=== PATIENT | female | born 1970 | race Caucasian/White ===

== ENCOUNTER 2018-04-29 08:16 | Day surgery (SDC) | payer MEDICAID ==
[2018-04-18 13:58] VITALS: BMI 28.1
[~2018-04-29 08:16] MED LIST: Carbachol 0.01% IO ONE; Chondroitin/Hyaluronate Opth Syringe KIT (0.55 ml-0.5 ml) IO ONE; Ciprofloxacin 0.3% OPTH SOLN OD SCH; Cyclopentolate 1% Opth (2 ml) OD SCH; Flurbiprofen 0.03% Opht SOLN OD SCH; Hyaluronidase Human, Recombi 150 U/ML VIAL ONE; Lactated Ringer's 500 ML IV ONE; Lidocaine 2% MPF (5 ml) Inj ONE; Phenylephrine 2.5% Opht Soln OD SCH; Povidone Iodine Ophthalmic 5% Soln ONE; Tetracaine 0.5% Ophth (OR ONLY) ONE; Tobramycin/Dexamethasone (Tobradex) Opth Sol (2.5 ml) ONE; Tobramycin/Dexamethasone OPHT OINT ONE; Tropicamide 1% Opht SOLUTION OD SCH
[2018-04-29 08:53] VITALS: RESP 18
[2018-04-29] MEDS ORDERED: acetaZOLAMIDE 500 mg SR Cap PO ONE (11:34)
[2018-04-29] MEDS ORDERED: Propofol 10 mg/ml Inj (20 ML) ONE (11:38)
[2018-04-29 12:29] VITALS: TEMP 97.2; O2SAT 100
[2018-04-29 12:42] VITALS: PULSE 75
[2018-04-29 12:50] VITALS: BP 120/77
--- NOTE | 2018-04-30 07:33 | OP ---
PROCEDURE DATE: 04/29/2018 PREOPERATIVE DIAGNOSIS: CATARACT RIGHT EYE. POSTOPERATIVE DIAGNOSIS: CATARACT RIGHT EYE. OPERATIVE PROCEDURE: CATARACT EXTRACTION WITH IMPLANT RIGHT EYE. ANESTHESIA TYPE: Local, standby. ANESTHESIOLOGIST: COMPLICATIONS: None. PROCEDURE: Local anesthesia was achieved using a mixture of 1% lidocaine and Amphadase. The patient was then prepped and draped in the usual sterile fashion for ophthalmic surgery. Betadine drops were placed into the eye. A lid speculum was used and a sideport incision was made using a 15 degree blade. Viscoelastic was used to fill the anterior chamber and a 2.7 millimeter slit blade was used to create a surgical opening. Additional viscoelastic was placed into the eye and a capsulorrhexis was performed. Hydrodissection and delineation were then carried out. Phacoemulsification of the nucleus was performed with ease and cortical cleanup was achieved without difficulty. The capsular bag was refilled using viscoelastic and a posterior chamber lens was inserted through the existing wound and placed into the capsular bag and easily centered. All viscoelastic was then aspirated from the eye and Miochol was instilled for good symmetric pupillary constriction. The sideport wound was hydrated as necessary and a good watertight closure was observed at the conclusion of the case. A TobraDex soaked collagen shield was then placed over the eye. The lid speculum was removed. TobraDex ointment was placed onto the eye and a patch and shield were placed. The patient tolerated the procedure well. Juan Alberto Valverde MD
== END 2018-04-29 12:51 | disposition home or self-care (01) ==
LOC: C.SDS 08:16
PROVIDERS: ATTEND Ophthalmology
DX: H25.11 Age-related nuclear cataract, right eye (principal)
CPT/HCPCS: 66984; J2704; J3470; J7120

== ENCOUNTER 2018-12-23 09:04 | Day surgery (SDC) | payer MEDICAID ==
[2018-12-05 08:46] VITALS: BMI 28.6
[~2018-12-23 09:04] MED LIST changes: -Ciprofloxacin 0.3% OPTH SOLN OD SCH; +Ciprofloxacin 0.3% OPTH SOLN OS SCH; -Cyclopentolate 1% Opth (2 ml) OD SCH; +Cyclopentolate 1% Opth (2 ml) OS SCH; -Flurbiprofen 0.03% Opht SOLN OD SCH; +Ketorolac Tromethamine 0.5% Opth Soln (3 ml) OS SCH; -Lidocaine 2% MPF (5 ml) Inj ONE; -Phenylephrine 2.5% Opht Soln OD SCH; +Phenylephrine 2.5% Opht Soln OS SCH; -Tetracaine 0.5% Ophth (OR ONLY) ONE; +Tropicamide 0.5% Opht Sol OS SCH; -Tropicamide 1% Opht SOLUTION OD SCH
[2018-12-23] MEDS ORDERED: Tropicamide 1% Opht SOLUTION OS STA (09:29)
[2018-12-23] MEDS ORDERED: Lidocaine 2% MPF (5 ml) Inj ONE (10:03)
[2018-12-23] MEDS ORDERED: Lactated Ringer's 500 ML IV ONE (10:21)
[2018-12-23] MEDS ORDERED: Propofol 10 mg/ml Inj (20 ML) ONE (12:47)
[2018-12-23 13:28] VITALS: O2SAT 100
[2018-12-23 14:12] VITALS: BP 120/65; PULSE 73; RESP 16; TEMP 97.5
--- NOTE | 2018-12-24 09:05 | OP ---
PROCEDURE DATE: 12/23/2018 PREOPERATIVE DIAGNOSIS: CATARACT, LEFT EYE. POSTOPERATIVE DIAGNOSIS: CATARACT, LEFT EYE. OPERATIVE PROCEDURE: CATARACT EXTRACTION WITH IMPLANT LEFT EYE. ANESTHESIA TYPE: Local, standby. ANESTHESIOLOGIST: . COMPLICATIONS: None. PROCEDURE: Local anesthesia was achieved using a mixture of 1% lidocaine and Amphadase. The patient was then prepped and draped in the usual sterile fashion for ophthalmic surgery. Betadine drops were placed into the eye. A lid speculum was used and a sideport incision was made using a 15 degree blade. Viscoelastic was used to fill the anterior chamber and a 2.7 millimeter slit blade was used to create a surgical opening. Additional viscoelastic was placed into the eye and a capsulorrhexis was performed. Hydrodissection and delineation were then carried out. Phacoemulsification of the nucleus was performed with ease and cortical cleanup was achieved without difficulty. The capsular bag was refilled using viscoelastic and a posterior chamber lens was inserted through the existing wound and placed into the capsular bag and easily centered. All viscoelastic was then aspirated from the eye and Miochol was instilled for good symmetric pupillary constriction. The sideport wound was hydrated as necessary and a good watertight closure was observed at the conclusion of the case. A TobraDex soaked collagen shield was then placed over the eye. The lid speculum was removed. TobraDex ointment was placed onto the eye and a patch and shield were placed. The patient tolerated the procedure well. Juan Alberto Valverde MD
== END 2018-12-23 14:12 | disposition home or self-care (01) ==
LOC: C.SDS 09:04
PROVIDERS: ATTEND Ophthalmology
DX: H25.12 Age-related nuclear cataract, left eye (principal)
CPT/HCPCS: 66984; J2704; J3470; J7120; V2632